=== PATIENT | female | born 1995 | race Caucasian/White ===

== ENCOUNTER 2017-11-03 16:17 | Emergency (ER) | payer BC ==
[~2017-11-03] VITALS: Ht 165.1 cm; Wt 61.3 kg
[2017-11-03] MEDS ORDERED: MOTRIN600 MG PO (17:40)
[2017-11-03] MEDS ORDERED: NORCO 5/3251 TABLET PO (18:34)
[2017-11-03 18:58] VITALS: BP 129/79
== END 2017-11-03 18:59 | disposition home or self-care (01) ==
LOC: EME 16:17
DX: S63.501A Unspecified sprain of right wrist, initial encounter (principal); S20.219A Contusion of unspecified front wall of thorax, initial encounter; S09.90XA Unspecified injury of head, initial encounter; Y09 Assault by unspecified means; F17.200 Nicotine dependence, unspecified, uncomplicated
CPT/HCPCS: 71046; 73090; 73110; 73130; 99281; 99283

== ENCOUNTER 2018-02-02 21:32 | Emergency (ER) | payer BC ==
[~2018-02-02] VITALS: Ht 165.1 cm; Wt 67.0 kg
[~2018-02-02 21:32] MED LIST: MOTRIN600 MG PO; NORCO 5/3251 TABLET PO
[2018-02-02] MEDS ORDERED: MOTRIN600 MG PO (22:40)
[2018-02-02] MEDS ORDERED: KEFLEX500 MG PO (22:40)
[2018-02-02 23:20] VITALS: BP 142/82
== END 2018-02-02 23:21 | disposition home or self-care (01) ==
LOC: EME 21:32
DX: L03.116 Cellulitis of left lower limb (principal); S90.562A Insect bite (nonvenomous), left ankle, initial encounter; W57.XXXA Bitten or stung by nonvenomous insect and other nonvenomous arthropods, initial encounter
CPT/HCPCS: 99281; 99283